=== PATIENT | female | born 1955 | race Two or more races ===

== ENCOUNTER 2017-04-16 19:32 | Emergency (ER) | payer OTHER ==
[~2017-04-16] VITALS: Ht 154.9 cm; Wt 106.1 kg
[~2017-04-16 19:32] MED LIST: AMLO5TAB2 PO; ATEN50TA PO; BACL10TA PO; GABA300C10 PO; HYDR-2551 PO; IBUP800T24 PO; LOSA100T27 PO; OMEP20CA74 PO; PROAIR INH; SIMV-8 PO; TRAM50TA2 PO
[2017-04-16 20:15] VITALS: BP 120/69
[2017-04-16] MEDS ORDERED: IBUPROFEN 600 MG TAB PO ONE ×2 (20:16→20:30)
== END 2017-04-16 21:56 | disposition home or self-care (01) ==
LOC: ER 19:32
DX: K02.9 Dental caries, unspecified (principal); K04.7 Periapical abscess without sinus; J45.909 Unspecified asthma, uncomplicated; E78.5 Hyperlipidemia, unspecified; I10 Essential (primary) hypertension; Z90.89 Acquired absence of other organs

== ENCOUNTER 2018-03-11 06:43 | Emergency (ER) | payer OTHER ==
[~2018-03-11] VITALS: Ht 167.6 cm; Wt 99.8 kg
[~2018-03-11 06:43] MED LIST changes: +AMLO5TAB13 PO; -AMLO5TAB2 PO; +LOSA-49 PO; -LOSA100T27 PO
[2018-03-11 06:58] VITALS: BP 127/75
[2018-03-11 07:50] LABS: Basophils # (auto) 0 uL; Basophils % (auto) 0.6 % (0.0-2.0); Eosinophils # (auto) 0.1 uL; Eosinophils % (auto) 1.5 % (0.0-7.0); Hematocrit 50.1 % (36.0-46.0); Hemoglobin 17.2 g/dL (12.2-16.2); Lymphocytes # (auto) 1.3 uL; Mean Corpuscular Hemoglobin 31.4 pg (28.0-32.0); Mean Corpuscular Hgb Conc. 34.2 g/dL (32.0-36.0); Mean Corpuscular Volume 91.9 fL (80.0-100.0); Monocytes # (auto) 0.4 uL; Monocytes % (auto) 5.3 % (0.0-12.0); Neutrophils # (auto) 5.9 uL; Neutrophils % (auto) 75.6 % (37.0-80.0); Nucleated Red Blood Cells % 0.1 %; Platelet Count (auto) 304 10^3/uL (140-450); Red Blood Cells 5.46 10^6/uL (4.0-5.20); Red Cell Distribution Width 13.3 % (11.8-14.3); White Blood Cell 7.8 10^3/uL (4.4-10.8)
[2018-03-11 08:04] LABS: Calcium 9.2 mg/dL (8.5-10.1); Potassium 4.3 mmol/L (3.5-5.1)
[2018-03-11 08:06] LABS: BUN/Creatinine Ratio 17.1
[2018-03-11 08:09] LABS: Bilirubin, Total 0.7 mg/dL (0.2-1.0); Total Protein 8.4 g/dL (6.4-8.2)
[2018-03-11] MEDS ORDERED: HYDROcodone-ACET 5/325MG TAB PO ONE (08:15)
[2018-03-11] MEDS ORDERED: KETOROLAC TROMETH 60MG/2ML VIAL IM ONE (08:15)
== END 2018-03-11 09:40 | disposition home or self-care (01) ==
LOC: EDBD 06:43 → ER 06:43
DX: M25.552 Pain in left hip (principal); M25.551 Pain in right hip; Z79.899 Other long term (current) drug therapy
CPT/HCPCS: 36415; 73502; 73630; 80053; 82962; 85025; 96372; 99284; J1885

== ENCOUNTER 2019-08-06 16:48 | Emergency (ER) | payer OTHER ==
[~2019-08-06] VITALS: Ht 154.9 cm; Wt 89.4 kg
[~2019-08-06 16:48] MED LIST changes: -AMLO5TAB13 PO; +AMLO5TAB15 PO; +LOSA-39 PO; -LOSA-49 PO
[2019-08-06 18:39] LABS: Basophils # (auto) 0.1 10 ^3/uL (0-0.2); Eosinophils # (auto) 0.1 10 ^3/uL (0-0.8); Hemoglobin 10.9 g/dL (12.2-16.2); Lymphocytes # (auto) 0.4 10 ^3/uL (0.4-5.4); Monocytes # (auto) 0.4 10 ^3/uL (0-1.3); Neutrophils # (auto) 3.2 10 ^3/uL (1.6-8.6); White Blood Cell 4.1 10^3/uL (4.4-10.8)
[2019-08-06 18:41] LABS: Basophils % (auto) 2.7 % (0.0-2.0); Eosinophils % (auto) 1.6 % (0.0-7.0); Hematocrit 31.9 % (36.0-46.0); Mean Corpuscular Hemoglobin 36.6 pg (28.0-32.0); Mean Corpuscular Hgb Conc. 34.4 g/dL (32.0-36.0); Mean Corpuscular Volume 106.6 fL (80.0-100.0); Monocytes % (auto) 9.8 % (0.0-12.0); Neutrophils % (auto) 76.9 % (37.0-80.0); Nucleated Red Blood Cells % 0.2 %; Platelet Count (auto) 220 10^3/uL (140-450); Red Blood Cells 2.99 10^6/uL (4.0-5.20)
[2019-08-06 18:57] LABS: Alanine Aminotransferase 21 U/L (13-56); Albumin 3.4 g/dL (3.4-5.0); Anion Gap 7 (5-15); Aspartate Aminotransferase 86 U/L (15-37); BUN/Creatinine Ratio 26.1; Blood Urea Nitrogen 23 mg/dL (7-18); Calcium 8.9 mg/dL (8.5-10.1); Carbon Dioxide 28 mmol/L (21-32); Chloride 101 mmol/L (98-107); GFR African American 84 mL/min; GFR Non-African American 69 mL/min; Glucose 83 mg/dL (74-106); Potassium 4.2 mmol/L (3.5-5.1); Sodium 136 mmol/L (136-145)
[2019-08-06 19:08] LABS: Alkaline Phosphatase 213 U/L (45-117); Bilirubin, Total 0.6 mg/dL (0.2-1.0); Total Protein 7.5 g/dL (6.4-8.2)
[2019-08-06] MEDS ORDERED: MORPHINE SULF INJ 2 MG/ML SYRINGE 1ML IM ONE (21:30)
[2019-08-06] MEDS ORDERED: ONDANSETRON HCL 4 MG/2 ML VIAL IM ONE (21:30)
[2019-08-06] MEDS ORDERED: HYDROcodone-ACET 10/325MG TAB PO ONE (21:45)
[2019-08-07 00:40] VITALS: BP 102/70
== END 2019-08-07 00:26 | disposition home or self-care (01) ==
LOC: ER 16:48
DX: S32.591A Other specified fracture of right pubis, initial encounter for closed fracture (principal); S42.301A Unspecified fracture of shaft of humerus, right arm, initial encounter for closed fracture; C50.919 Malignant neoplasm of unspecified site of unspecified female breast; C79.51 Secondary malignant neoplasm of bone; I10 Essential (primary) hypertension; J45.909 Unspecified asthma, uncomplicated; E78.5 Hyperlipidemia, unspecified; E11.9 Type 2 diabetes mellitus without complications; F17.210 Nicotine dependence, cigarettes, uncomplicated; X58.XXXA Exposure to other specified factors, initial encounter; Y93.89 Activity, other specified; Y92.89 Other specified places as the place of occurrence of the external cause; Y99.8 Other external cause status
CPT/HCPCS: 36415; 71045; 72192; 80053; 83735; 83880; 84484; 85025; 93970; 99285; J7030; 93005